=== PATIENT | female | born 1995 | race Two or more races ===

== ENCOUNTER 2018-04-27 13:58 | Emergency (ER) | payer SELFPAY ==
[~2018-04-27] VITALS: Ht 157.5 cm; Wt 63.5 kg
[2018-04-27 14:00] VITALS: BP 115/62
--- NOTE | 2018-04-27 14:21 | PHYS DOC ---
Past Medical History Past Medical History: No Pertinent History Past Surgical History: No Surgical History Alcohol Use: None Drug Use: None Adult General Chief Complaint Chief Complaint: NOSEBLEED HPI HPI Patient is a 22 year old female with no significant medical history who presents today complaining of an episode of nose bleeding that occurred this morning. Patient states she was able to stop the bleeding herself. She states she has previous history of nose bleeds. Patient denies any trauma. Denies any history of hypertension. Review of Systems Review of Systems Constitutional: Denies fever or chills [] Eyes: Denies change in visual acuity, redness, or eye pain [] HENT: Reports nose bleeding. Denies nasal congestion or sore throat [] Respiratory: Denies cough or shortness of breath [] Cardiovascular: No additional information not addressed in HPI [] GI: Denies abdominal pain, nausea, vomiting, bloody stools or diarrhea [] : Denies dysuria or hematuria [] Musculoskeletal: Denies back pain or joint pain [] Integument: Denies rash or skin lesions [] Neurologic: Denies headache, focal weakness or sensory changes [] All other systems were reviewed and found to be within normal limits, except as documented in this note. Physical Exam Physical Exam Constitutional: Well developed, well nourished, no acute distress, non-toxic appearance. [] HENT: Normocephalic, atraumatic, bilateral external ears normal, oropharynx moist, no oral exudates, nose normal. [] Eyes: PERRLA, EOMI, conjunctiva normal, no discharge. [] Neck: Normal range of motion, no tenderness, supple, no stridor. [] Cardiovascular:Heart rate regular rhythm, no murmur [] Lungs & Thorax: Bilateral breath sounds clear to auscultation [] Abdomen: Bowel sounds normal, soft, no tenderness, no masses, no pulsatile masses. [] Skin: Warm, dry, no erythema, no rash. [] Back: No tenderness, no CVA tenderness. [] Extremities: No tenderness, no cyanosis, no clubbing, ROM intact, no edema. [] Neurologic: Alert and oriented X 3, normal motor function, normal sensory function, no focal deficits noted. [] Psychologic: Affect normal, judgement normal, mood normal. [] Current Patient Data Vital Signs Vital Signs Date Time Temp Pulse Resp B/P (MAP) Pulse Ox O2 Delivery O2 Flow Rate FiO2 04/27/18 14:00 98.7 85 18 115/62 (79) 100 Room Air 98.7 EKG EKG [] Radiology/Procedures Radiology/Procedures [] Course & Med Decision Making Course & Med Decision Making Pertinent Labs and Imaging studies reviewed. (See chart for details) This is a 22 year old female patient presenting to the ED today with nose bleeding that occurred this morning and stopped. Patient has normal vitals, no nose bleeding in the ED. She was discharged back to home. Educated on methods of stopping nose bleeding. Follow-up with PCP as needed. Dragon Disclaimer Dragon Disclaimer This electronic medical record was generated, in whole or in part, using a voice recognition dictation system. Departure Departure Impression: Primary Impression: Epistaxis Disposition: 01 HOME, SELF-CARE Condition: STABLE Patient Instructions: Nosebleed, [id number] Additional Instructions: You were evaluated in the emergency room for nose bleeding. Consider applying Neosporin in your nasal cavities for the next 1 week. Follow-up with your primary care doctor in 1-2 weeks as needed. Come back to the ED at any point your not able to stop a nose bleeding episode. ADALBERTO JAIN APRN Apr 27, 2018 14:21
== END 2018-04-27 14:47 | disposition home or self-care (01) ==
LOC: ER 13:58
DX: R04.0 Epistaxis (principal)
CPT/HCPCS: 99281